=== PATIENT | female | born 1995 | race Caucasian/White ===

== ENCOUNTER 2018-06-23 19:19 | Inpatient (IN) | payer BC ==
[~2018-06-23] VITALS: Ht 165.1 cm; Wt 55.6 kg
[2018-06-23 20:25] LABS: Basophils # (auto) 0 uL; Basophils % (auto) 0.4 % (0.0-2.0); Eosinophils # (auto) 0 uL; Hematocrit 42.1 % (36.0-46.0); Hemoglobin 14.5 g/dL (12.2-16.2); Lymphocytes # (auto) 1.5 uL; Lymphocytes % (auto) 14.8 % (10.0-50.0); Mean Corpuscular Hemoglobin 31.3 pg (28.0-32.0); Mean Corpuscular Hgb Conc. 34.4 g/dL (32.0-36.0); Mean Corpuscular Volume 90.8 fL (80.0-100.0); Monocytes # (auto) 0.6 uL; Monocytes % (auto) 6.4 % (0.0-12.0); Neutrophils # (auto) 7.8 uL; Neutrophils % (auto) 78.4 % (37.0-80.0); Platelet Count (auto) 294 10^3/uL (140-450); Red Blood Cells 4.63 10^6/uL (4.0-5.20); Red Cell Distribution Width 13.6 % (11.8-14.3); White Blood Cell 9.9 10^3/uL (4.4-10.8)
[2018-06-23 20:41] LABS: Urine Bacteria FEW /hpf (None Seen); Urine Blood 3+ /uL (Negative); Urine Mucus FEW (None Seen); Urine Specific Gravity 1.029 (1.001-1.035); Urine WBC 52 /hpf (0 - 5)
[2018-06-23 20:53] LABS: Alanine Aminotransferase 19 U/L (13-56); Alkaline Phosphatase 70 U/L (45-117); Anion Gap 11 (5-15); Aspartate Aminotransferase 13 U/L (15-37); BUN/Creatinine Ratio 17.1; Blood Urea Nitrogen 12 mg/dL (7-18); Carbon Dioxide 22 mmol/L (21-32); Chloride 107 mmol/L (98-107); GFR African American 135 mL/min; GFR Non-African American 111 mL/min; Glucose 92 mg/dL (74-106); Potassium 3.6 mmol/L (3.5-5.1); Sodium 140 mmol/L (136-145)
[2018-06-23 20:54] LABS: Albumin 4.4 g/dL (3.4-5.0); Amylase 68 U/L (25-115); Bilirubin, Total 0.4 mg/dL (0.2-1.0); Lipase 112 U/L (73-393); Total Protein 8.3 g/dL (6.4-8.2)
[2018-06-24] VITALS (7 sets, daily range): BP systolic 93–111; BP diastolic 49–70
[2018-06-24] MEDS ORDERED: MORPHINE SULFATE 4 MG/ML SYR/VIAL IV ONE (00:15)
[2018-06-24] MEDS ORDERED: ONDANSETRON HCL 4 MG/2 ML VIAL IV ONE ×2 (00:15→04:00)
[2018-06-24] MEDS ORDERED: ONDANSETRON HCL 4 MG/2 ML VIAL ONE (00:25)
[2018-06-24] MEDS ORDERED: MORPHINE SULFATE 4 MG/ML SYR/VIAL ONE (00:25)
[2018-06-24] MEDS ORDERED: SODIUM CHLORIDE 0.9% 1,000 ML IV ONE (00:30)
[2018-06-24] MEDS ORDERED: MORPHINE SULFATE 4 MG/ML SYR/VIAL IV PRN (03:45)
[2018-06-24] MEDS ORDERED: HYDROcodone-ACET 5/325MG TAB PO PRN (03:45)
[2018-06-24] MEDS ORDERED: ONDANSETRON HCL 4 MG/2 ML VIAL IV PRN (03:45)
[2018-06-24] MEDS: cefTRIAXone 1GM/10ml IVPUSH 10 ML IV SCH ×2 (09:00→14:47)
[2018-06-24] MEDS: FAMOTIDINE 20 MG TAB PO SCH ×3 (10:00→22:25)
[2018-06-24] MEDS: MORPHINE SULF INJ 2 MG/ML SYRINGE 1ML IV PRN ×2 (18:08→22:26)
[2018-06-25 05:08] VITALS: BP 102/62
[2018-06-25 06:20] LABS: Basophils # (auto) 0.1 uL; Eosinophils # (auto) 0 uL; Eosinophils % (auto) 0.9 % (0.0-7.0); Hematocrit 37.2 % (36.0-46.0); Hemoglobin 12.8 g/dL (12.2-16.2); Lymphocytes # (auto) 2.5 uL; Lymphocytes % (auto) 46.4 % (10.0-50.0); Mean Corpuscular Hemoglobin 31.2 pg (28.0-32.0); Mean Corpuscular Hgb Conc. 34.3 g/dL (32.0-36.0); Mean Corpuscular Volume 91.1 fL (80.0-100.0); Monocytes # (auto) 0.5 uL; Monocytes % (auto) 8.8 % (0.0-12.0); Neutrophils # (auto) 2.3 uL; Neutrophils % (auto) 42.9 % (37.0-80.0); Nucleated Red Blood Cells % 0.1 %; Platelet Count (auto) 227 10^3/uL (140-450); Red Blood Cells 4.09 10^6/uL (4.0-5.20); Red Cell Distribution Width 13.3 % (11.8-14.3); White Blood Cell 5.3 10^3/uL (4.4-10.8)
[2018-06-25 06:31] LABS: INR 1.05 (0.9-1.15); Partial Thromboplastin Time 27.2 sec (23.78-33.04); Prothrombin Time 11.2 sec (9.27-12.13)
[2018-06-25 06:45] LABS: Albumin 3.6 g/dL (3.4-5.0); BUN/Creatinine Ratio 20.7; Bilirubin, Total 0.6 mg/dL (0.2-1.0); Calcium 8.3 mg/dL (8.5-10.1); Potassium 3.6 mmol/L (3.5-5.1); Total Protein 6.9 g/dL (6.4-8.2)
[2018-06-25] MEDS ORDERED: LIDOCAINE VISCOUS 2% 15ML UD ONE (08:19)
[2018-06-25] MEDS ORDERED: diphenhdrAMINE HCL 50 MG/1 ML VL ONE (08:19)
[2018-06-25] MEDS ORDERED: SODIUM CHLORIDE LOCK 10 ML ONE (08:20)
[2018-06-25 09:00] VITALS: BP 108/66
[2018-06-25] MEDS: cefTRIAXone 1GM/10ml IVPUSH 10 ML IV SCH (09:23)
[2018-06-25] MEDS: MORPHINE SULF INJ 2 MG/ML SYRINGE 1ML IV PRN (09:33)
[2018-06-25] MEDS: MIDAZOLAM HCL 5 MG/ML-1ML VIAL ONE ×2 (12:38→12:41)
[2018-06-25] MEDS: fentaNYL CITRATE 100 MCG/2 ML VL ONE ×2 (12:38→12:41)
[2018-06-25 17:00] VITALS: BP 99/60
[2018-06-25 22:00] VITALS: BP 112/64
[2018-06-26] VITALS (7 sets, daily range): BP systolic 100–105; BP diastolic 51–78
[2018-06-26 06:53] LABS: Basophils # (auto) 0.1 uL; Basophils % (auto) 0.9 % (0.0-2.0); Eosinophils # (auto) 0.1 uL; Hematocrit 36.1 % (36.0-46.0); Hemoglobin 12.8 g/dL (12.2-16.2); Lymphocytes # (auto) 2.9 uL; Lymphocytes % (auto) 49.4 % (10.0-50.0); Mean Corpuscular Hgb Conc. 35.5 g/dL (32.0-36.0); Mean Corpuscular Volume 90.1 fL (80.0-100.0); Monocytes # (auto) 0.6 uL; Monocytes % (auto) 10.8 % (0.0-12.0); Neutrophils # (auto) 2.2 uL; Neutrophils % (auto) 37.9 % (37.0-80.0); Nucleated Red Blood Cells % 0.1 %; Platelet Count (auto) 248 10^3/uL (140-450); Red Blood Cells 4.01 10^6/uL (4.0-5.20); Red Cell Distribution Width 13.4 % (11.8-14.3); White Blood Cell 5.8 10^3/uL (4.4-10.8)
[2018-06-26 07:21] LABS: Potassium 3.6 mmol/L (3.5-5.1)
[2018-06-26 07:22] LABS: BUN/Creatinine Ratio 16.4; Calcium 8.1 mg/dL (8.5-10.1)
[2018-06-26] MEDS: PANTOPRAZOLE 40 MG TAB PO SCH (10:21)
[2018-06-26] MEDS: cefTRIAXone 1GM/10ml IVPUSH 10 ML IV SCH (10:21)
[2018-06-26] MEDS ORDERED: D5W/SOD CHL 0.45%/KCL 20MEQ 1,000 ML IV ONE (16:15)
[2018-06-27 04:53] VITALS: BP 107/58
[2018-06-27 07:04] LABS: Basophils # (auto) 0 uL; Basophils % (auto) 0.6 % (0.0-2.0); Eosinophils # (auto) 0.1 uL; Eosinophils % (auto) 0.9 % (0.0-7.0); Hematocrit 41.6 % (36.0-46.0); Hemoglobin 14.3 g/dL (12.2-16.2); Mean Corpuscular Hemoglobin 31.1 pg (28.0-32.0); Mean Corpuscular Hgb Conc. 34.5 g/dL (32.0-36.0); Mean Corpuscular Volume 90.1 fL (80.0-100.0); Monocytes # (auto) 0.7 uL; Monocytes % (auto) 9.8 % (0.0-12.0); Neutrophils # (auto) 2.9 uL; Neutrophils % (auto) 43.7 % (37.0-80.0); Nucleated Red Blood Cells % 0.1 %; Platelet Count (auto) 296 10^3/uL (140-450); Red Blood Cells 4.62 10^6/uL (4.0-5.20); Red Cell Distribution Width 13.3 % (11.8-14.3); White Blood Cell 6.7 10^3/uL (4.4-10.8)
[2018-06-27 07:19] LABS: Calcium 9.3 mg/dL (8.5-10.1); Potassium 3.2 mmol/L (3.5-5.1)
[2018-06-27 07:22] LABS: BUN/Creatinine Ratio 11.7
[2018-06-27 08:00] VITALS: BP 91/54
[2018-06-27] MEDS ORDERED: PROMETHAZINE HCL 25 MG/ML 1ML IM STA (08:06)
[2018-06-27] MEDS: PROMETHAZINE HCL 25 MG/ML 1ML IV PRN ×2 (08:38→13:40)
[2018-06-27 08:44] VITALS: BP 91/54
[2018-06-27] MEDS: D5W/SOD CHLO 0.9% 1,000 ML IV SCH ×2 (08:44→17:56)
[2018-06-27] MEDS: cefTRIAXone 1GM/10ml IVPUSH 10 ML IV SCH (09:00)
[2018-06-27] MEDS ORDERED: ceFAZolin 1GM/50ML 50 ML IV ONE (09:53)
[2018-06-27] MEDS ORDERED: NEOSTIGMINE 1 MG/ML INJ (10mg/10ML VIAL) IV ONE (09:55)
[2018-06-27] MEDS ORDERED: GLYCOPYRROLATE 0.2 MG/ML 1ML VIAL IV ONE (09:55)
[2018-06-27] MEDS ORDERED: MIDAZOLAM HCL 1MG/1ML-2 ML VIAL ONE (09:59)
[2018-06-27] MEDS ORDERED: fentaNYL CITRATE 100 MCG/2 ML VL ONE (09:59)
[2018-06-27] MEDS ORDERED: MEPERIDINE HCL (50 MG/ML) 1 ML VIAL ONE (09:59)
[2018-06-27] MEDS ORDERED: ROCURONIUM 10MG/ML 10ML VIAL IV ONE (10:00)
[2018-06-27] MEDS ORDERED: MORPHINE SULFATE 4 MG/ML SYR/VIAL IV PRN (10:00)
[2018-06-27] MEDS ORDERED: MORPHINE SULFATE 4 MG/ML SYR/VIAL IV ONE (10:00)
[2018-06-27] MEDS ORDERED: ONDANSETRON HCL 4 MG/2 ML VIAL IV ONE (10:00)
[2018-06-27] MEDS ORDERED: ePHEDrine SULFATE 50 MG/ML AMP IV PRN (10:00)
[2018-06-27] MEDS ORDERED: HYDROmorphone HCL 2 MG/ML VL IV PRN (10:00)
[2018-06-27] MEDS ORDERED: LABETALOL HCL 5 MG/ML 4ML SYRINGE IV PRN (10:00)
[2018-06-27] MEDS ORDERED: MIDAZOLAM HCL 1MG/1ML-2 ML VIAL IV PRN (10:00)
[2018-06-27] MEDS ORDERED: KETOROLAC TROMETH 30 MG/ML 1ML VIAL IV ONE (10:00)
[2018-06-27] MEDS ORDERED: DEXAMETHASONE SOD PHOS 10MG/1ML VIAL INJ ONE (10:03)
[2018-06-27] MEDS ORDERED: PROPOFOL 10 MG/ML 20 ML IV ONE (10:03)
[2018-06-27] MEDS ORDERED: KETOROLAC TROMETH 30 MG/ML 1ML VIAL ONE (10:25)
[2018-06-27] MEDS ORDERED: PHENYLEPHRINE HCL 10 MG/ML VL ONE (10:26)
[2018-06-27] MEDS: PANTOPRAZOLE 40 MG TAB PO SCH (13:41)
[2018-06-27] MEDS: MORPHINE SULF INJ 2 MG/ML SYRINGE 1ML IV PRN (13:42)
[2018-06-27] MEDS ORDERED: MORPHINE SULF INJ 2 MG/ML SYRINGE 1ML IV PRN (14:15)
[2018-06-27 17:08] VITALS: BP 102/59
[2018-06-27 20:08] VITALS: BP 112/63
[2018-06-27] MEDS: MORPHINE SULFATE 4 MG/ML SYR/VIAL IV PRN (20:15)
[2018-06-27 22:00] VITALS: BP 112/63
[2018-06-28] MEDS: MORPHINE SULFATE 4 MG/ML SYR/VIAL IV PRN ×2 (01:17→16:40)
[2018-06-28] MEDS: D5W/SOD CHLO 0.9% 1,000 ML IV SCH ×2 (04:01→14:15)
[2018-06-28] MEDS: ACETAMINOPHEN 325 MG TAB PO PRN ×2 (04:24→21:40)
[2018-06-28 05:00] VITALS: BP 111/66
[2018-06-28 07:30] LABS: Basophils # (auto) 0 uL; Basophils % (auto) 0.3 % (0.0-2.0); Eosinophils # (auto) 0 uL; Eosinophils % (auto) 0.2 % (0.0-7.0); Hematocrit 35.4 % (36.0-46.0); Lymphocytes # (auto) 2.1 uL; Lymphocytes % (auto) 23.4 % (10.0-50.0); Mean Corpuscular Hemoglobin 30.4 pg (28.0-32.0); Mean Corpuscular Hgb Conc. 33.9 g/dL (32.0-36.0); Mean Corpuscular Volume 89.9 fL (80.0-100.0); Monocytes # (auto) 0.8 uL; Monocytes % (auto) 9.2 % (0.0-12.0); Neutrophils # (auto) 5.9 uL; Neutrophils % (auto) 66.9 % (37.0-80.0); Platelet Count (auto) 230 10^3/uL (140-450); Red Blood Cells 3.94 10^6/uL (4.0-5.20); Red Cell Distribution Width 13.3 % (11.8-14.3); White Blood Cell 8.8 10^3/uL (4.4-10.8)
[2018-06-28 07:46] LABS: BUN/Creatinine Ratio 11.4; Calcium 8.2 mg/dL (8.5-10.1); Potassium 3.1 mmol/L (3.5-5.1)
[2018-06-28 09:00] VITALS: BP 89/45
[2018-06-28] MEDS: PROMETHAZINE HCL 25 MG/ML 1ML IV PRN (09:29)
[2018-06-28] MEDS: PANTOPRAZOLE 40 MG TAB PO SCH (09:29)
[2018-06-28] MEDS: AZITHROMYCIN 250 MG TAB PO SCH (09:29)
[2018-06-28] MEDS: AMOXICILLIN TRIHYDRATE 250 MG CAP PO SCH ×2 (09:29→21:41)
[2018-06-28 13:00] VITALS: BP 106/67
[2018-06-28 17:00] VITALS: BP 94/53
[2018-06-28 20:09] VITALS: BP 112/64
[2018-06-28 21:55] VITALS: BP 112/64
[2018-06-29] MEDS: D5W/SOD CHLO 0.9% 1,000 ML IV SCH (00:29)
[2018-06-29 04:38] VITALS: BP 95/53
[2018-06-29 07:06] LABS: Basophils # (auto) 0 uL; Eosinophils # (auto) 0 uL; Eosinophils % (auto) 0.7 % (0.0-7.0); Hematocrit 36.5 % (36.0-46.0); Hemoglobin 12.4 g/dL (12.2-16.2); Lymphocytes # (auto) 1.3 uL; Lymphocytes % (auto) 38.8 % (10.0-50.0); Mean Corpuscular Hemoglobin 30.5 pg (28.0-32.0); Mean Corpuscular Volume 89.7 fL (80.0-100.0); Monocytes # (auto) 0.4 uL; Monocytes % (auto) 11.9 % (0.0-12.0); Neutrophils # (auto) 1.6 uL; Neutrophils % (auto) 47.6 % (37.0-80.0); Nucleated Red Blood Cells % 0.1 %; Platelet Count (auto) 180 10^3/uL (140-450); Red Blood Cells 4.07 10^6/uL (4.0-5.20); Red Cell Distribution Width 13.3 % (11.8-14.3); White Blood Cell 3.4 10^3/uL (4.4-10.8)
[2018-06-29 07:17] LABS: BUN/Creatinine Ratio 4.5; Calcium 7.9 mg/dL (8.5-10.1)
[2018-06-29 07:23] LABS: Potassium 2.9 mmol/L (3.5-5.1)
[2018-06-29 08:00] VITALS: BP 96/56
[2018-06-29] MEDS: POTASSIUM CHL 20 Meq TABLET PO SCH ×3 (08:35→21:31)
[2018-06-29 09:00] VITALS: BP 96/56
[2018-06-29] MEDS: AMOXICILLIN TRIHYDRATE 250 MG CAP PO SCH ×2 (10:55→21:32)
[2018-06-29] MEDS: PANTOPRAZOLE 40 MG TAB PO SCH (10:55)
[2018-06-29] MEDS: AZITHROMYCIN 250 MG TAB PO SCH (10:56)
[2018-06-29 13:00] VITALS: BP 95/60
[2018-06-29 17:00] VITALS: BP 111/71
[2018-06-29] MEDS: ACETAMINOPHEN 325 MG TAB PO PRN (18:39)
[2018-06-29 22:00] VITALS: BP 100/63
[2018-06-30] MEDS: ACETAMINOPHEN 325 MG TAB PO PRN (00:30)
[2018-06-30 05:00] VITALS: BP 95/72
[2018-06-30 05:47] LABS: Basophils # (auto) 0.1 uL; Basophils % (auto) 1.6 % (0.0-2.0); Eosinophils # (auto) 0.2 uL; Eosinophils % (auto) 3.9 % (0.0-7.0); Hematocrit 41.7 % (36.0-46.0); Hemoglobin 13.9 g/dL (12.2-16.2); Lymphocytes % (auto) 45.8 % (10.0-50.0); Mean Corpuscular Hemoglobin 30.7 pg (28.0-32.0); Mean Corpuscular Hgb Conc. 33.4 g/dL (32.0-36.0); Mean Corpuscular Volume 92.1 fL (80.0-100.0); Monocytes # (auto) 0.6 uL; Monocytes % (auto) 14.4 % (0.0-12.0); Neutrophils # (auto) 1.5 uL; Neutrophils % (auto) 34.3 % (37.0-80.0); Nucleated Red Blood Cells % 0.2 %; Platelet Count (auto) 185 10^3/uL (140-450); Red Blood Cells 4.53 10^6/uL (4.0-5.20); Red Cell Distribution Width 13.1 % (11.8-14.3); White Blood Cell 4.3 10^3/uL (4.4-10.8)
[2018-06-30] MEDS: POTASSIUM CHL 20 Meq TABLET PO SCH (06:00)
[2018-06-30 06:01] LABS: BUN/Creatinine Ratio 13.7; Calcium 8.8 mg/dL (8.5-10.1); Potassium 4.1 mmol/L (3.5-5.1)
[2018-06-30 08:00] VITALS: BP 95/72
[2018-06-30 09:00] VITALS: BP 107/60
[2018-06-30] MEDS: AMOXICILLIN TRIHYDRATE 250 MG CAP PO SCH (10:08)
[2018-06-30] MEDS: AZITHROMYCIN 250 MG TAB PO SCH (10:09)
[2018-06-30] MEDS: PANTOPRAZOLE 40 MG TAB PO SCH (10:09)
[2018-06-30 13:00] VITALS: BP 108/68
[2018-06-30] MEDS ORDERED: PANT40T PO (14:21)
[2018-06-30 14:44] VITALS: BP 108/68
== END 2018-06-30 15:20 | disposition home or self-care (01) | DRG 356 ==
LOC: ER 19:19 → OVERFLOW 19:20 → WEST WING 06-24 04:34
PROVIDERS: ADMIT Nurse Practitioner; ATTEND Internal Medicine
PROC: 0DB68ZX Excision of Stomach, Via Natural or Artificial Opening Endoscopic, Diagnostic (ICD-10-PCS; 2018-06-25)
PROC: 0FT44ZZ Resection of Gallbladder, Percutaneous Endoscopic Approach (ICD-10-PCS; principal; 2018-06-27 09:58)
DX: K29.71 Gastritis, unspecified, with bleeding (principal); K85.90 Acute pancreatitis without necrosis or infection, unspecified; N39.0 Urinary tract infection, site not specified; K80.12 Calculus of gallbladder with acute and chronic cholecystitis without obstruction; B96.81 Helicobacter pylori [H. pylori] as the cause of diseases classified elsewhere; E83.59 Other disorders of calcium metabolism; E87.6 Hypokalemia; K82.8 Other specified diseases of gallbladder; N29 Other disorders of kidney and ureter in diseases classified elsewhere
CPT/HCPCS: 36415; 43239; 74176; 76705; 76856; 78226; 80048; 80053; 81001; 81025; 82150; 82247; 82310; 82962; 83690; 83970; 84702; 85025; 85610; 85730; 86850; 86900; 86901; 94761; 96361; 96374; 96375; A6257; J0690; J0696; J1100; J1885; J2250; J2405; J2704; J7042

== ENCOUNTER 2022-09-30 14:22 | Emergency (ER) | payer SELFPAY ==
[~2022-09-30] VITALS: Ht 165.1 cm; Wt 61.4 kg
[~2022-09-30 14:22] MED LIST: PANT40T PO
[2022-09-30 15:04] VITALS: BP 116/65
[2022-09-30] MEDS ORDERED: IBUP600T27 PO (15:52)
[2022-09-30] MEDS ORDERED: METH500T22 PO (15:52)
== END 2022-09-30 15:59 | disposition home or self-care (01) ==
LOC: ER 14:24
DX: S16.1XXA Strain of muscle, fascia and tendon at neck level, initial encounter (principal); S39.012A Strain of muscle, fascia and tendon of lower back, initial encounter; V43.52XA Car driver injured in collision with other type car in traffic accident, initial encounter; Y93.89 Activity, other specified; Y92.410 Unspecified street and highway as the place of occurrence of the external cause; Y99.8 Other external cause status
CPT/HCPCS: 72040; 72100